=== PATIENT | female | born 1950 | race Caucasian/White ===

== ENCOUNTER 2020-08-09 04:02 | Inpatient (IN) | payer MEDICARE, OTHER, SELFPAY ==
[2020-08-09] VITALS (36 sets, daily range): BP systolic 90–151; BP diastolic 48–98; PULSE 41–84; RESP 12–24; TEMP 36.1–36.9; O2SAT 23–100
--- NOTE | 2020-08-09 | ECHO_ITS ---
Patient Info Name: Ivanna Chakraborty Age: 70 years : 1950 Gender: Female Ht: 63 in Wt: 141 lbs BSA: 1.70 m2 HR: 61 bpm BP: 124 / 64 mmHg Heart Rhythm: Sinus Rhythm Technical Quality: Good Exam Date: 08/09/2020 3:05 PM Exam Location: [facility] Pulmonary Patient Status: Inpatient Admit Date: 08/09/2020 Staff Ordering Physician: Rex Saleh MD Collision Repairer: Rigo Vazquez, ILANA, RT Attending Provider: Michael Gleasno MD Referring Physician: Therese LANDEROS; Exam Type: CA echo doppler color flow Study Info Indications I50.9 - Heart failure, unspecified Complete two-dimensional, color flow and Doppler transthoracic echocardiogram is performed. Strain analysis performed. Summary 1. Complete two-dimensional, color flow and Doppler transthoracic echocardiogram is performed. 2. Strain analysis performed. 3. Left ventricular chamber dimension is normal. 4. Left ventricular systolic function is moderately reduced, estimated at 35-40%. 5. There is mildly increased left ventricular wall thickness. 6. The left ventricular diastolic function is normal. 7. Global longitudinal strain is abnormal at -15 %. 8. The apical septum, apical anterior wall, apical cap, and mid inferoseptal are akinetic. 9. The apical lateral wall, basal anterior wall, mid anterior wall, basal inferoseptal, mid anterolateral wall, basal anteroseptal, and mid anteroseptal are hypokinetic. 10. Left atrial chamber dimension is mildly enlarged. 11. There is mild to moderate mitral valve regurgitation. 12. There is mild tricuspid valve regurgitation. 13. There is mild pulmonic regurgitation. Left Ventricle Left ventricular chamber dimension is normal. Left ventricular systolic function is moderately reduced, estimated at 35-40%. There is mildly increased left ventricular wall thickness. The left ventricular diastolic function is normal. Global longitudinal strain is abnormal at -15 %. The apical septum, apical anterior wall, apical cap, and mid inferoseptal are akinetic. The apical lateral wall, basal anterior wall, mid anterior wall, basal inferoseptal, mid anterolateral wall, basal anteroseptal, and mid anteroseptal are hypokinetic. All other acharya appear normal. Right Ventricle Right ventricular chamber dimension is normal. Right ventricular systolic function is normal. Left Atria Left atrial chamber dimension is mildly enlarged. Right Atria Right atrial chamber dimension is normal. Atrial Septum Intact interatrial septum visualized by color flow imaging. Aortic Valve The aortic valve is trileaflet. There is mild aortic valve sclerosis. There is no aortic valve stenosis. There is trace aortic valve regurgitation. Pulmonic Valve The pulmonic valve is normal. There is no pulmonic valve stenosis. There is mild pulmonic regurgitation. Mitral Valve The mitral valve has normal leaflets. There is no mitral valve stenosis. There is mild to moderate mitral valve regurgitation. Tricuspid Valve The tricuspid valve leaflets are normal. There is no significant tricuspid valve stenosis. There is mild tricuspid valve regurgitation. No pulmonary hypertension, estimated pulmonary arterial systolic pressure is 34 mmHg. Pericardium/Pleural The pericardium appears normal. There is no pericardial effusion. Inferior Vena Cava Normal inferior vena cava with <50% collapse upon inspiration consistent with normal right atrial pressure, 5 mmHg. Ao
--- NOTE | ~2020-08-09 | XR_ITS ---
EXAMINATION: XR chest 1V portable INDICATION: STEMI, tobacco use TECHNIQUE: Portable AP chest at 0423 hours COMPARISON: 01/26/2006 FINDINGS: The lungs are free of acute opacities. There is no pleural effusion or pneumothorax. The ca rdiomediastinal silhouette is normal. There is mild elevation of the right hemidiaphragm. IMPRESSION: 1. No acute cardiopulmonary abnormality. Reviewed, dictated and finalized at location A. PROCESSOR
--- NOTE | 2020-08-09 04:08 | ECG_ITS ---
Measurements Intervals [place] Rate: 43 P: 18 MS: 140 QRS: 62 QRSD: 103 T: -50 QT: 492 QTc: 418 Interpretive Statements SINUS BRADYCARDIA EXTENSIVE ANTERIOR ST ELEVATION MYOCARDIAL INJURY- ACUTE HIGH LATERAL ST ELEVATION MYOCARDIAL INJURY- ACUTE BASELINE ARTIFACT- AVR, AVL, AVF ABNORMAL ECG Electronically Signed On 08-09-2020 7:12:32 CAPITAL EQUIPMENT SPECIALIST by Juan Roldan D.O.
--- NOTE | 2020-08-09 04:15 | PC.NURSE ---
pt @0411, given heparin 4000 mcg, atropine 0.5 mg, zofran 4 mg. them @ fentanyl 50 mcg ivp.
--- NOTE | 2020-08-09 04:16 | ED.GENADULT ---
HPI - General Adult General Chief complaint: Chest Pain Stated complaint: stemi Time Seen by Provider: 08/09/20 04:16 History of Present Illness HPI narrative: Patient 70-year-old female who presents the emergency department with chief complaint of chest pain. The patient reports that this afternoon she started having discomfort in her chest and reported that it got progressively worse the patient initially thought it was indigestion the patient ultimately called EMS this evening was having some nausea with it as well patient reports that does not radiate reports that its not improved reports the pain is severe. The patient reports no prior history of ND just history of hypothyroidism Related Data Home Medications Medication Instructions Recorded Confirmed levothyroxine [Synthroid] 125 mcg PO DAILY 08/09/20 08/09/20 Review of Systems Review of Systems: Narrative: A 10 system review of systems was completed on the patient and is negative except for what is stated in the HPI. Nursing and ancillary documentation was reviewed. PMFSH Comments Past medical history significant for hypothyroidism Social history the patient reports that she smokes Exam Narrative: Exam Narrative: GENERAL: Well-appearing, well-nourished, and in moderate pain distress. HEAD: Normocephalic, atraumatic. EYES: PERRLA and EOMI. ENT: Nares clear, no rhinorrhea or epistaxis. Mucous membranes moist. NECK: Supple. CHEST: Clear to auscultation. No respiratory distress. HEART: Regular rate and rhythm. No murmur heard. Normal peripheral pulses. ABDOMEN: Soft, nontender, nondistended, normal active bowel sounds. EXTREMITIES: Normal range of motion. No edema. SKIN: Warm, dry, no rash. NEURO: No focal deficits. Alert and oriented x3. PSYCH: Normal mood and affect. Course Course Emergency Course: EKG shows sinus bradycardia with a rate of 43 ST elevations present in V2 V3 and V4 there is reciprocal ST depressions present in 2 3 and aVF The patient was activated as an ST elevation ND upon arrival the patient was profoundly bradycardic with a rate going in the 30s to low 40s patient was given half a milligram of atropine that has improved the patient's heart rate and also include the patient's blood pressure she was given a bolus of heparin she received aspirin prior to arrival by EMS beta-blockers were held due to the patient's bradycardia The case was discussed with the on-call interventionalist Dr. Gleason and the plan will be to take the patient to the cardiac catheterization lab Vital Signs Vital signs: Vital Signs Temperature 36.1 C L 08/09/20 04:02 Pulse Rate 41 L 08/09/20 04:02 Respiratory Rate 12 08/09/20 04:02 Blood Pressure 90/53 L 08/09/20 04:02 Pulse Oximetry 100 08/09/20 04:02 Temperature 36.1 C L 08/09/20 04:02 Pulse Rate 81 08/09/20 04:14 Respiratory Rate 18 08/09/20 04:14 Blood Pressure 109/72 08/09/20 04:14 Pulse Oximetry 100 08/09/20 04:14 Medical Decision Making Vital Signs Vital Signs: Vital Signs Temperature 36.1 C L 08/09/20 04:02 Pulse Rate 41 L 08/09/20 04:02 Respiratory Rate 12 08/09/20 04:02 Blood Pressure 90/53 L 08/09/20 04:02 Pulse Oximetry 100 08/09/20 04:02 Temperature 36.1 C L 08/09/20 04:02 Pulse Rate 81 08/09/20 04:14 Respiratory Rate 18 08/09/20 04:14 Blood Pressure 109/72 08/09/20 04:14 Pulse Oximetry 100 08/09/20 04:14 Critical Care Time Critical Care Time Critical Care Time: Yes Total Critical Care Time: 30 Discharge Plan Discharge Clinical Impression: Acute ST elevation myocardial infarction Qualifiers: Involved coronary artery: other anterior wall coronary artery Qualified Code(s): I21.09 - ST elevation (STEMI) myocardial infarction involving other coronary artery of anterior wall Patient Disposition: Still a Patient Condition: Stable Prescriptions: No Action levothyroxine [Synthroid] 125 mcg Tablet 125 mcg
[2020-08-09] MEDS: fentaNYL CITRATE INJ (*CRX) 100 MCG/2 ML VIAL (04:20)
--- NOTE | 2020-08-09 04:21 | PC.NURSE ---
ems gave mg
--- NOTE | 2020-08-09 04:23 | PC.NURSE ---
ns x 2 wo iv
--- NOTE | 2020-08-09 04:26 | PC.NURSE ---
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
[2020-08-09 04:29] LABS: Basophils Absolute Auto 0.2 K/mm3 (0.0-0.1); Basophils Percent Auto 1.7 % (0.2-1.2); Eosinophils Absolute Auto 1.1 K/mm3 (0-0.3); Eosinophils Percent Auto 12.6 % (0-4.4); Hematocrit 39.2 % (37.0-47.0); Immature Granulocyte Absolute 0.01 K/mm3 (0.00-0.031); Immature Granulocyte Percent A 0.1 % (0-0.5); Lymphocytes Absolute Auto 3.95 K/mm3 (0.9-3.2); Lymphocytes Percent Auto 43.8 % (18.3-44.2); Mean Corpuscular HGB Conc 33.2 g/dl (32-36); Mean Corpuscular Hemoglobin 29.8 pg (26-34); Mean Corpuscular Volume 89.9 fl (80-100); Mean Platelet Volume 10.1 fl (7.4-10.4); Monocytes Percent Auto 11.4 % (2.6-8.5); Neutrophils Absolute Auto 2.7 K/mm3 (1.3-6.7); Neutrophils Percent Auto 30.4 % (45.5-73.1); Platelet Count Result 285 k/mm3 (150-375); Red Blood Count 4.36 M/mm3 (4.2-5.4); Red Cell Distribution Width 12.3 % (11.5-14.5)
[2020-08-09] MEDS: TICAGRELOR 90 MG TABLET 180 MG PO (04:40)
[2020-08-09 04:42] LABS: Alanine Aminotransferase 20 U/L (4-35); Albumin Level 3.9 g/dL (3.5-5.1); Alkaline Phosphatase 65 U/L (38-126); Anion Gap 5 mmol/L (8-16); Aspartate Amino Transferase 32 U/L (14-36); Bilirubin,Total 0.4 mg/dL (0.2-1.3); Blood Urea Nitrogen 11 mg/dL (7-17); Calcium 8.8 mg/dL (8.4-10.2); Carbon Dioxide 27 mmol/L (22-30); Chloride 105 mmol/L (98-107); Cholesterol 200 mg/dL (0-200); Estimated CRCL calculation 65 ml/min; Estimated Glomerular Filt Rate > 60; Glucose 146 mg/dL (65-105); HDL Direct 74 mg/dL; Potassium 3.5 mmol/L (3.4-5.0); Sodium 137 mmol/L (137-145); Triglycerides 107 mg/dL (<150)
[2020-08-09 04:43] LABS: Prothrombin Time 13.6 Seconds (11.1-14.7)
[2020-08-09 04:44] LABS: Partial Thromboplastin Time 24.9 SECONDS (22.3-36.8)
[2020-08-09 04:53] LABS: LDL Cholesterol Direct 98 mg/dL
--- NOTE | 2020-08-09 05:02 | PC.NURSE ---
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
[2020-08-09 05:05] LABS: Troponin I 0.309 ng/mL (0.000-0.034)
--- NOTE | 2020-08-09 05:49 | ECG_ITS ---
Measurements Intervals [place] Rate: 75 P: 75 AL: 169 QRS: 73 QRSD: 93 T: 104 QT: 440 QTc: 492 Interpretive Statements SINUS RHYTHM ATRIAL PREMATURE COMPLEX ANTEROSEPTAL MYOCARDIAL INFARCT- PROBABLY RECENT ABNORMAL ECG Electronically Signed On 08-09-2020 7:28:10 SALES HUNTER by Juan Roldan D.O.
--- NOTE | 2020-08-09 05:54 | WPDCARDPROC ---
Cardiac Cath Procedure Note Date of procedure:: 08/09/20 Performing physician:: Michael Gleason MD Indication:: acute anterior NH Brief clinical history:: this is a 70-year-old woman without previous cardiac history. She has a history of prior thyroidectomy with thyroid replacement therapy but no other medical problems. She presents to the hospital this morning with chest pain and ECG evidence of acute anterior current of injury. the patient presented in the middle of the night and was kept in the emergency room until I arrived because apparently there were some [place] arrhythmias requiring atropine. Start of her procedure was delayed somewhat because of this. Procedure Procedure performed:: Emergency coronary angiogram emergency PCI to proximal LAD left ventriculography Sedation/Medication given:: no additional sedation given in the cath lab nurse case start time 5:21 a.m. case end time 5:46 a.m. Access site:: right femoral artery Estimated blood loss:: 15-20 cc Procedure note:: patient was brought to the catheterization lab in the emergency setting. The right femoral triangle was prepared and draped in the usual fashion. Anesthesia was provided with 1% lidocaine infiltrated locally. Using the modified Seldinger technique a 6 Marshallese sheath was placed into right femoral artery after this I used a 6 Marshallese CLS 3.5 guiding catheter to engage and inject the left coronary artery in multiple projections. After this PCI of the proximal LAD was recommended and carried out as detailed below. Prior to PCI the patient was systemically anticoagulated with bolus and infusion of Angiomax. She did receive aspirin and a loading dose of 180 mg of Brilinta in the emergency department. Following completion of PCI a 5 Marshallese JR4 catheter was used to engage and inject the right coronary artery in orthogonal projections. After this a 5 Marshallese angled pigtail catheter was used to measure left-sided hemodynamics and to injected left ventriculogram in the MARTEL projection. Following this the case was terminated the sheath was sutured into position patient was taken to the ICU for post NH/PCI recovery. There were no apparent procedural complication she left the cath lab nurse with no evidence of a groin hematoma. Findings:: Hemodynamics: Central aortic pressure is 140 over 72 left ventricle 138/12 end-diastolic pressure 24. There is no gradient on pullback across the aortic valve. Left ventricle: The LV is normal in size the anterior wall is markedly hypodynamic. The global ejection fraction is reduced to approximately 40%. Left main coronary artery is patent but extremely short and bifurcates almost immediately into LAD and circumflex the left anterior descending is a somewhat small vessel in caliber. There is a 99% subtotal occlusion of the proximal LAD prior to any branches. There is PRISCILLA 2 flow in the LAD distal to this subtotal occlusion. Circumflex is a large caliber artery giving rise to the marginal branches as well as 2 posterior branches. Circumflex system and its branches are smooth and angiographically free of disease. Right coronary artery is small to medium in caliber it is dominant to the posterior wall giving rise to an RPDA and a small RPL branch. The right coronary artery is smooth and angiographically unremarkable. Intervention: The CLS 3.5 guiding catheter was used and had to be withdrawn almost out of the left main to cannulate the LAD with a 0.014 BMW coronary guidewire. The guidewire was eventually successfully advanced into the LAD. the guidewire was advanced into a large diagonal branch that was was noted in the MONGOLIAN cranial projection. The LAD itself was distal to the area of disease. Since there was difficulty cannulating the LAD this was accepted as a satisfactory position for the wire since the lesion was very proximal. After this the lesion was pre-dilated using a 2.5 x 20 mm emerge balloon after which the ar
--- NOTE | 2020-08-09 06:04 | PM.IMHP ---
H&P: HPI History of Present Illness Date/Time: 08/09/20 06:04 Chief Complaint: Chest pain Narrative: this is a 70-year-old patient who has no previous history of heart disease who apparently began to experience significant chest pain in the middle of the night. She was brought to the emergency room by EMS her ECG was found to show acute evidence of anterior wall myocardial infarction and STEMI protocol was activated. Patient reports the onset of retrosternal heaviness with some diaphoresis no significant shortness of breath or radiation of the pain to any other location. She states she has never had a cardiac problem in the past. She reports a history of thyroidectomy in childhood after which she has been on thyroid replacement therapy. She denies any knowledge of hypertension diabetes or dyslipidemia. Review of Systems Review of Systems: Narrative: No time to obtain review of systems during this emergency ROS unobtainable: Yes unobtainable due to medical condition Meds Home Medications and Allergies Home Medications Medication Instructions Recorded Confirmed Type levothyroxine [Synthroid] 125 mcg PO DAILY 08/09/20 08/09/20 History Allergies Allergy/AdvReac Type Severity Reaction Status Date / Time amoxicillin Allergy Rash Verified 08/09/20 04:31 Vital Signs Vital Signs - 24 hr 08/09/20 04:02 08/09/20 04:08 08/09/20 04:14 Temperature 36.1 C L Pulse Rate 41 L 81 81 Respiratory Rate 12 15 18 Blood Pressure 90/53 L 96/79 L 109/72 Pulse Oximetry 100 100 100 08/09/20 04:28 08/09/20 04:46 08/09/20 05:01 Temperature Pulse Rate 84 82 81 Respiratory Rate 16 24 H 18 Blood Pressure 138/48 L 142/80 H 151/86 H Pulse Oximetry 100 100 100 Exam Const: General: uncomfortable Other: 70-year-old lady appears to be healthy in moderate distress with 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 HENMT: Mouth: Yes moist mucous membranes Eyes: Sclera: sclerae normal Pupils: Equal, round and reactive pupils present Neck: Neck: supple and no JVD Other: carotid pulses are intact no bruit Resp: Effort & Inspection: normal respiratory effort Auscultation: clear to auscultation bilaterally Cardio: Rate: regular rate and tachycardic Rhythm: regular rhythm Other: no murmur no gallop GI: GI Palp: Yes Soft to palpation Auscultation: normal bowel sounds Skin: General skin exam: normal color Neuro: Cognition (Neuro): normal cognition Extrem: General: normal to inspection H&P: Results Labs Labs: Short CBC 08/09/20 Range/Units 04:12 WBC 9.0 (4.5-10.0) K/mm3 Hgb 13.0 (12.0-15.0) g/dL Hct 39.2 (37.0-47.0) % Plt Count 285 (150-375) k/mm3 BMP 08/09/20 04:12 Sodium 137 Potassium 3.5 Chloride 105 Carbon Dioxide 27 BUN 11 Creatinine 0.60 L Glucose 146 H Calcium 8.8 Cardiac Enzymes 08/09/20 Range/Units 04:12 Troponin I 0.309 H* (0.000-0.034) ng/mL Liver Function 08/09/20 Range/Units 04:12 Total Bilirubin 0.4 (0.2-1.3) mg/dL AST 32 (14-36) U/L ALT 20 (4-35) U/L Alkaline Phosphatase 65 (38-126) U/L Albumin 3.9 (3.5-5.1) g/dL Assessment and Plan Additional Plan this is a 70-year-old lady with a history of childhood thyroidectomy and no other medical problems presenting with chest pain in the middle of the night and has acute anterior wall current of injury by ECG. She is being brought to the cardiac catheterization lab for emergency angiography and revascularization. The patient was kept in the emergency department because of instability of her cardiac rhythm and for that reason the start of this angiogram was delayed somewhat following my arrival. Michael Gleason MD [facility]
--- NOTE | 2020-08-09 06:33 | PC.NURSE ---
This patient, Ivanna Chakraborty, was admitted to Intensive Care Unit-2. Patient/family oriented to hospital policies and general routines including ID bracelet, bed and alarms, visiting hours, pain management, procedures, bathroom and other care routines, personal items, smoking policy, room service/diet, and visiting hours. Information on how to activate the Rapid Response Team has been discussed. Patient/Family are encouraged to report perceived risks to care and to ask questions if they do not understand what they are told or what they should do.
[2020-08-09] MEDS: SODIUM CHLORIDE 0.9% IV 1,000 ML 125 ML IV CONT (07:00)
[2020-08-09] MEDS: LOSARTAN POTASSIUM 25 MG TABLET PO (08:29)
[2020-08-09] MEDS: ROSUVASTATIN 10 MG TABLET 20 MG PO (08:29)
[2020-08-09] MEDS: ASPIRIN 81 MG CHEWABLE TABLET PO (08:29)
--- NOTE | 2020-08-09 08:40 | WPDCNINT ---
Assessment and Plan Assessment and plan (1) Acute ST elevation myocardial infarction: Qualifiers: Involved coronary artery: other anterior wall coronary artery Qualified Code(s): I21.09 - ST elevation (STEMI) myocardial infarction involving other coronary artery of anterior wall Code(s): I21.3 - ST elevation (STEMI) myocardial infarction of unspecified site Status: Acute Assessment and Plan: Patient presented the ED with substernal chest pain along with diaphoresis and shortness of breath. Pain did not radiate. In the ED patient EKG was found to show an acute anterior wall myocardial infarction, STEMI team was alerted, patient status post cardiac catheterization, PTCA/PCI to proximal LAD, EF of 40%. - continue Brilinta, Cozaar, Crestor, ASA, Metoprolol cardiology following closely (2) Hypothyroidism: Code(s): E03.9 - Hypothyroidism, unspecified Status: Acute Assessment and Plan: Will continue levothyroxine Additional Plan Discussed with patient and updated her with her condition and plan of care. Code status: Full Code critical care time spent: 41 minutes This dictation may have been done utilizing a voice recognition system. Attempts have been made to correct errors. However, there may be uncorrected grammatical, spelling, and recognition errors present. Due to a high probability of clinically significant, life threatening deterioration, the patient required my highest level of preparedness to intervene emergently and I personally spent this critical care time directly and personally managing the patient. This critical care time included obtaining a history; examining the patient; pulse oximetry; ordering and review of studies; arranging urgent treatment with development of a management plan; evaluation of patient's response to treatment; frequent reassessment; and discussions with other providers. It was exclusive of separately billable procedures and treating other patients and teaching time. 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 Patient denies any cardiac history. In the ED patient EKG was found to show an acute anterior wall myocardial infarction, STEMI team was alerted, patient status post cardiac catheterization, PTCA/PCI to proximal LAD, EF of 40%. Patient was transferred to the ICU for further management Patient seen and examined the ICU, is awake, alert, oriented, nonfocal. Patient states she has got some mild epigastric to substernal discomfort 1/10 intensity which she thinks is related to heartburn as she has had this problems in the past. Patient denies any shortness of breath, diaphoresis, nausea, vomiting. Patient denies any tobacco use, alcohol use or illicit drug use. Review of Systems Review of Systems: All systems reviewed & are unremarkable except as noted in HPI and below PMFSH Past Medical History Medical History (Updated 08/09/20 @ 08:45 by Rex Saleh MD) Hypothyroidism Social History Social History Smoking packs per day: 4 Smoking cigarettes per day: 80.0 Smoking status: Former smoker Tobacco type: cigarettes Second hand tobacco smoke exposure: No Alcohol intake: never Substance use: never Spiritual care concerns: No Meds Home Medications and Allergies Home Medications Medication Instructions Recorded Confirmed Type levothyroxine [Synthroid] 125 mcg PO DIRECTED 08/09/20 08/09/20 History Allergies Allergy/AdvReac Type Severity Reaction Status Date / Time amoxicillin Aller
[2020-08-09] MEDS: METOPROLOL SUCCINATE EXT REL 50 MG TABCR PO (09:51)
[2020-08-09] MEDS: FAMOTIDINE 20 MG/2 ML VIAL IV PUSH ×2 (09:52→19:51)
[2020-08-09] MEDS: LEVOTHYROXINE SODIUM 100 MCG TABLET PO (09:52)
--- NOTE | 2020-08-09 13:17 | ECG_ITS ---
Measurements Intervals [place] Rate: 57 P: 51 [place]: 160 QRS: 74 QRSD: 93 T: 107 QT: 517 QTc: 507 Interpretive Statements SINUS BRADYCARDIA ANTEROSEPTAL MYOCARDIAL INFARCT- PROBABLY RECENT ABNORMAL ECG Electronically Signed On 08-09-2020 13:40:28 BASKET FILLER by Juan Roldan D.O.
[2020-08-09] MEDS: CALCIUM CARBONATE (TUMS) 500 MG (200 MG ELEMENTAL) PO (13:35)
[2020-08-09] MEDS: ONDANSETRON INJ 4 MG/2 ML VIAL IV PUSH (17:17)
[2020-08-09] MEDS: ALPRAZolam (*CRX) 0.5 MG TABLET PO (19:51)
[2020-08-09] MEDS: TICAGRELOR 90 MG TABLET PO (19:52)
[2020-08-09] MEDS: MAGNESIUM HYDROXIDE SUSP 30 ML UDC PO (19:54)
[2020-08-10] VITALS (20 sets, daily range): BP systolic 100–129; BP diastolic 54–72; PULSE 57–92; RESP 16–22; TEMP 36.6–36.8; O2SAT 92–97
--- NOTE | 2020-08-10 05:11 | ECG_ITS ---
Measurements Intervals [place] Rate: 63 P: 52 LA: 154 QRS: 51 QRSD: 96 T: 120 QT: 485 QTc: 500 Interpretive Statements SINUS RHYTHM ATRIAL PREMATURE COMPLEX ANTEROSEPTAL MYOCARDIAL INFARCT- PROBABLY RECENT HIGH LATERAL MYOCARDIAL INFARCT- PROBABLY RECENT ABNORMAL ECG Electronically Signed On 08-10-2020 11:58:16 ENFORCEMENT MANAGER by Juan Roldan D.O.
[2020-08-10 05:37] LABS: Basophils Absolute Auto 0.1 K/mm3 (0.0-0.1); Basophils Percent Auto 0.7 % (0.2-1.2); Eosinophils Absolute Auto 0.5 K/mm3 (0-0.3); Eosinophils Percent Auto 6.4 % (0-4.4); Hematocrit 39.3 % (37.0-47.0); Hemoglobin 13.3 g/dL (12.0-15.0); Immature Granulocyte Absolute 0.02 K/mm3 (0.00-0.031); Immature Granulocyte Percent A 0.2 % (0-0.5); Lymphocytes Absolute Auto 1.22 K/mm3 (0.9-3.2); Lymphocytes Percent Auto 14.4 % (18.3-44.2); Mean Corpuscular HGB Conc 33.8 g/dl (32-36); Mean Corpuscular Hemoglobin 30.4 pg (26-34); Mean Corpuscular Volume 89.7 fl (80-100); Mean Platelet Volume 10.3 fl (7.4-10.4); Monocytes Absolute Auto 0.9 K/mm3 (0.1-0.6); Neutrophils Absolute Auto 5.8 K/mm3 (1.3-6.7); Neutrophils Percent Auto 68.3 % (45.5-73.1); Platelet Count Result 201 k/mm3 (150-375); Red Blood Count 4.38 M/mm3 (4.2-5.4); Red Cell Distribution Width 12.4 % (11.5-14.5); White Blood Count 8.5 K/mm3 (4.5-10.0)
[2020-08-10 05:51] LABS: Anion Gap 2 mmol/L (8-16); Blood Urea Nitrogen 5 mg/dL (7-17); Calcium 7.9 mg/dL (8.4-10.2); Carbon Dioxide 28 mmol/L (22-30); Chloride 98 mmol/L (98-107); Cholesterol 161 mg/dL (0-200); Estimated CRCL calculation 73 ml/min; Estimated Glomerular Filt Rate > 60; Glucose 137 mg/dL (65-105); HDL Direct 57 mg/dL; Magnesium 1.7 mg/dL (1.6-2.3); Phosphorus 3.1 mg/dL (2.5-4.5); Potassium 4.2 mmol/L (3.4-5.0); Sodium 128 mmol/L (137-145); Triglycerides 78 mg/dL (<150)
[2020-08-10 06:01] LABS: LDL Cholesterol Direct 77 mg/dL
[2020-08-10] MEDS: LEVOTHYROXINE SODIUM 125 MCG TABLET PO (06:28)
--- NOTE | 2020-08-10 08:30 | WPDINTPN ---
Progress Note: A&P Assessment and Plan (1) Acute ST elevation myocardial infarction: Qualifiers: Involved coronary artery: other anterior wall coronary artery Qualified Code(s): I21.09 - ST elevation (STEMI) myocardial infarction involving other coronary artery of anterior wall Code(s): I21.3 - ST elevation (STEMI) myocardial infarction of unspecified site Status: Acute Assessment and Plan: Patient presented the ED with substernal chest pain along with diaphoresis and shortness of breath. In the ED patient EKG was found to show an acute anterior wall myocardial infarction, STEMI team was alerted, patient status post cardiac catheterization, PTCA/PCI to proximal LAD, EF of 40%. - Continue Brilinta, Cozaar, Crestor, ASA, Metoprolol. Blood pressure within acceptable range. cardiology following closely (2) Hypothyroidism: Code(s): E03.9 - Hypothyroidism, unspecified Status: Acute Assessment and Plan: Will continue levothyroxine (3) GERD (gastroesophageal reflux disease): Code(s): K21.9 - Gastro-esophageal reflux disease without esophagitis Status: Acute Assessment and Plan: Can add Prilosec if symptoms continued. Can use Maalox/Mylanta on p.r.n. basis for her symptoms. Additional Plan Discussed with patient and updated her with her condition and plan of care. Code status: Full Code Patient can be transferred to telemetry floor today. This dictation may have been done utilizing a voice recognition system. Attempts have been made to correct errors. However, there may be uncorrected grammatical, spelling, and recognition errors present. Subjective Date/time seen: 08/10/20 08:30 She is feeling better. She denied have any chest pain. She is complaining of some indigestion and was given some p.r.n. medicine last night with improvement in her symptoms. She denied have any shortness of breath dizziness and lightheadedness. She has been ambulating in the room going to restroom without any issues. Her hemodynamics are stable. Review of Systems Review of Systems: All systems reviewed & are unremarkable except as noted in HPI and below Exam Const: General: comfortable and no acute distress HENMT: Mouth: Yes moist mucous membranes Eyes: Sclera: sclerae normal Pupils: Equal, round and reactive pupils present Neck: Neck: supple Resp: Effort & Inspection: normal respiratory effort Auscultation: clear to auscultation bilaterally Cardio: Rate: regular rate Rhythm: regular rhythm GI: Inspection: non-distended Auscultation: normal bowel sounds : Other: Deferred Skin: General skin exam: normal color and no rashes or lesions noted Neuro: Cranial nerves: Yes Equal, round and reactive pupils present Other: Patient is awake, alert, oriented x3, nonfocal, answers to questions appropriately and follows simple commands in all extremities Extrem: General: normal to inspection, no edema and no pedal edema Other: Right groin site no evidence of ecchymosis or hematoma Psych: Mental Status: mental status grossly normal Affect: normal affect Objective Data Vital Signs Vital Signs: Vital Signs - 24 hr 08/09/20 08:32 08/09/20 09:17 08/09/20 09:25 Temperature Pulse Rate 63 66 Pulse Rate [Bilateral Pedal (Dorsalis Pedis) Palpation] 82 66 Respiratory Rate 22 H 22 H Blood Pressure 120/73 136/74 Pulse Oximetry 92 100 08/09/20 09:45 08/09/20 09:51 08/09/20 09:55 Temperature Pulse Rate 69 68 62 Pulse Rate [Bilateral Pedal (Dorsalis Pedis) Palpation] Respiratory Rate 15 22 H 18 Blood Pressure 134/90 125/66 134/90 Pulse Oximetry 91 100 93 08/09/20 10:00 08/09/20 10:30 08/09/20 11:00 Temperature Pulse Rate 66 64 64 Pulse Rate [Bilateral Pedal (Dorsalis Pedis) Palpation] 66 64 64 Respiratory Rate 17 15 15 Blood Pressure 126/70 126/70 126/75 Pulse Oximetry 92 92 93 08/09/20 11:52 08/09/20 12:00 08/09/20 13:00
[2020-08-10] MEDS: ASPIRIN 81 MG CHEWABLE TABLET PO (08:38)
[2020-08-10] MEDS: METOPROLOL SUCCINATE EXT REL 50 MG TABCR PO (08:38)
[2020-08-10] MEDS: ROSUVASTATIN 10 MG TABLET 20 MG PO (08:39)
[2020-08-10] MEDS: LOSARTAN POTASSIUM 25 MG TABLET PO (08:39)
[2020-08-10] MEDS: TICAGRELOR 90 MG TABLET PO ×2 (08:40→19:42)
--- NOTE | 2020-08-10 12:15 | PM.PNCARD ---
Progress Note: A&P Assessment and Plan (1) Acute ST elevation myocardial infarction: Qualifiers: Involved coronary artery: other anterior wall coronary artery Qualified Code(s): I21.09 - ST elevation (STEMI) myocardial infarction involving other coronary artery of anterior wall Code(s): I21.3 - ST elevation (STEMI) myocardial infarction of unspecified site Status: Acute Assessment and Plan: 99% proximal LAD occlusion status post successful 3.0 x 22 mm Orsiro drug-eluting stent. akinetic anterior wall, EF 40%. Continue dual antiplatelet therapy with aspirin and Brilinta, losartan, rosuvastatin, Toprol XL. Currently asymptomatic and doing well. Counseled extensively on the importance of medications, potential complication risk, arrhythmias, heart failure, recurrent symptoms and risk with noncompliance of subsequent stent thrombosis and/or myocardial infarction that may potentially lead to . Discussed outpatient follow-up, cardiac rehabilitation referral, post catheterization precautions and recommendations. All questions answered to their satisfaction. Patient's daughter at bedside. May transfer to [address] [place] [address] today. Patient must remain hospitalized for least 48 hours. Earliest discharge consideration tomorrow provided no issues overnight tolerating medications without difficulty. Patient verbalized understanding and agreed with plan of care. (2) Ischemic cardiomyopathy: Code(s): I25.5 - Ischemic cardiomyopathy Status: Acute Assessment and Plan: Compensated, EF 40%. Residual ST elevations on EKG this a.m. in anterior leads. (3) Hypothyroidism: Code(s): E03.9 - Hypothyroidism, unspecified Status: Acute Assessment and Plan: Continue levothyroxine. (4) Palpitations: Code(s): R00.2 - Palpitations Status: Acute Assessment and Plan: Seems to correlate with intermittent PVCs. No nonsustained VT or sustained VT on telemetry. (5) GERD (gastroesophageal reflux disease): Code(s): K21.9 - Gastro-esophageal reflux disease without esophagitis Status: Acute Assessment and Plan: Change to p.o. Pepcid 20 mg b.i.d.. Subjective Date/time seen: date of service: 08/10/20 10:15 Follow-up for anterior ST-elevation [place] status post PCI to LAD. New issues overnight. Patient noted some burning upper abdominal lower chest discomfort resolved with milk of magnesia and Zofran. Feels well today. No complaints. No significant ventricular arrhythmias on telemetry. Denies shortness of breath or chest pain. Blood pressure stable. Tolerating medications thus far. Review of Systems Review of Systems: All systems reviewed & are unremarkable except as noted in HPI and below Constitutional: Constitutional: Reports as per HPI and Reports no additional constitutional complaints Eyes: Eyes: Reports as per HPI and Reports no additional eye complaints ENT: Reports system reviewed and no additional complaints, except as documented and Reports as per HPI Cardiovascular: Cardiovascular: Reports as per HPI and Reports no additional cardiovascular complaints Respiratory: Respiratory: Reports as per HPI, Reports no additional respiratory complaints, Denies dyspnea and Denies dyspnea on exertion Gastrointestinal: Gastrointestinal: Reports as per HPI, Reports no additional gastrointestinal complaints, Reports heartburn, Reports nausea and Denies vomiting Genitourinary: Genitourinary: Reports no additional female genitourinary complaints and Reports as per HPI Musculoskeletal: Musculoskeletal: Reports no additional musculoskeletal complaints and Reports as per HPI Integumentary/Breasts: Skin/Breast: Reports system reviewed and no additional complaints, except as docu and Reports as per HPI Neurologic: Reports system reviewed and no additional complaints, except as documented and Reports as per HPI Psychiatric: Psychiatric: Reports no additi
[2020-08-10] MEDS: MAGNESIUM SULF 1 GM/D5W 100 ML 1 GM/100 ML BAG IVPB (13:29)
[2020-08-10] MEDS: AMIODARONE 150 MG/D5W 100 ML 150 MG/100 ML BAG 600 MG IV CONT (14:44)
[2020-08-10] MEDS: AMIODARONE HCL 200 MG TABLET 400 MG PO (16:08)
[2020-08-10] MEDS: AMIODARONE 360 MG/D5W 200 ML 360 MG/200 ML BAG 33.33 MG IV CONT (17:17)
--- NOTE | 2020-08-10 19:15 | PC.NURSE ---
notified of patient's runs of VTACH that began at 1240 on 08/10/2020. New orders for 1gm Magnesium IV received. Will continue to monitor.
--- NOTE | 2020-08-10 19:16 | PC.NURSE ---
Patient had a 26 second run of VTACH at 1412. notified of cardiac event. New orders for one time dose of 150mg bolus of Amiodarone, followed by 400mg PO Amiodarone TID. Will continue to monitor.
--- NOTE | 2020-08-10 19:18 | PC.NURSE ---
Administered PO Amiodarone at 1608. No change in frequency of VTACH runs in patient by 1710. Notified of patient's continued VTACH runs. New orders received to initiate patient on Amiodarone gtt at 1mg/hr (33.33m/hr). Will continue to monitor.
[2020-08-10] MEDS: AMIODARONE 360 MG/D5W 200 ML 360 MG/200 ML BAG 16.67 MG IV CONT (23:17)
[2020-08-11] VITALS (21 sets, daily range): BP systolic 100–113; BP diastolic 43–80; PULSE 52–118; RESP 14–20; TEMP 36.2–37.4; O2SAT 94–100
--- NOTE | 2020-08-11 03:15 | PC.NURSE ---
Daylight Savings Time For Daylight Savings Time Ending in the Fall - Clocks are moved back. For Daylight Savings Time Beginning in the Spring - Clocks are moved ahead. For [facility], the time of change occurs at 0200 hrs. Time is taken from the toll service observer. This entry on the patient's chart recognizes the change in time reflected during documentation. Example: 2 entries for vital signs may be charted for 0200 hrs.
[2020-08-11] MEDS: LEVOTHYROXINE SODIUM 100 MCG TABLET PO (05:24)
[2020-08-11] MEDS: ASPIRIN 81 MG CHEWABLE TABLET PO (08:50)
[2020-08-11] MEDS: FAMOTIDINE 20 MG TABLET PO ×2 (08:50→20:41)
[2020-08-11] MEDS: ROSUVASTATIN 10 MG TABLET 20 MG PO (08:50)
[2020-08-11] MEDS: METOPROLOL SUCCINATE EXT REL 50 MG TABCR PO (08:50)
[2020-08-11] MEDS: TICAGRELOR 90 MG TABLET PO ×2 (08:50→20:42)
--- NOTE | 2020-08-11 09:36 | ECG_ITS ---
Measurements Intervals [place] Rate: 50 P: 8 GA: 161 QRS: 58 QRSD: 93 T: 133 QT: 555 QTc: 509 Interpretive Statements SINUS BRADYCARDIA ST-T WAVE ABNORMALITY IN ANTEROLAT/HIGH LAT LEADS- CONSIDER ISCHEMIA ABNORMAL ECG Electronically Signed On 08-11-2020 10:24:07 CDT by Juan Roldan D.O.
[2020-08-11 09:59] LABS: Hematocrit 36.3 % (37.0-47.0); Hemoglobin 12.5 g/dL (12.0-15.0); Mean Corpuscular HGB Conc 34.4 g/dl (32-36); Mean Corpuscular Hemoglobin 30.9 pg (26-34); Mean Corpuscular Volume 89.6 fl (80-100); Mean Platelet Volume 10.5 fl (7.4-10.4); Platelet Count Result 174 k/mm3 (150-375); Red Blood Count 4.05 M/mm3 (4.2-5.4); Red Cell Distribution Width 12.4 % (11.5-14.5); White Blood Count 7.3 K/mm3 (4.5-10.0)
--- NOTE | 2020-08-11 10:07 | PM.PNCARD ---
Progress Note: A&P Assessment and Plan (1) Acute ST elevation myocardial infarction: Qualifiers: Involved coronary artery: other anterior wall coronary artery Qualified Code(s): I21.09 - ST elevation (STEMI) myocardial infarction involving other coronary artery of anterior wall Code(s): I21.3 - ST elevation (STEMI) myocardial infarction of unspecified site Status: Acute Assessment and Plan: 99% proximal LAD occlusion status post successful 3.0 x 22 mm Orsiro drug-eluting stent. akinetic anterior wall, EF 40%. Continue dual antiplatelet therapy with aspirin and Brilinta, losartan, rosuvastatin, Toprol XL. Currently asymptomatic and doing well. No active or recurrent angina overnight. DVT prophylaxis. Enoxaparin 40 mg subcutaneous daily (2) NSVT (nonsustained ventricular tachycardia): Code(s): I47.2 - Ventricular tachycardia Status: Acute Assessment and Plan: We discussed at length yesterday morning reason for hospitalization to monitor for ventricular tachyarrhythmias. Unfortunately, not long after my visit with her she developed frequent, recurrent nonsustained VT runs up the approximately 20 beats. Several runs of polymorphic. Patient was symptomatic. Given the frequency this necessitated amiodarone initiation. Patient feels sedated on the amiodarone, otherwise tolerating medical therapy. Continue Toprol XL as tolerated. We discussed risks, benefits, alternatives with amiodarone although short-term use anticipated. Discussed option of discontinuation with observation now versus short-term use for approximately 1 month. -will discontinue IV amiodarone, begin 400 mg p.o. b.i.d. and observe tolerance. Discussed interaction with thyroid over time as well. -Repeat 12 lead EKG, CBC, BMP, magnesium. -if residual or progressive ST-elevation on EKG and/or refractory NSVT EKG repeat 2D echocardiogram to assess for development of LV aneurysm. No evidence or exam findings suggestive of new or worsening MR. -Pt is not stable for discharge due development of new and concerning ventricular arrhythmias. Cont telemetry and close observation -apnea link overnight. (3) Ischemic cardiomyopathy: Code(s): I25.5 - Ischemic cardiomyopathy Status: Acute Assessment and Plan: Compensated, EF 35-40%. Beta-bk, ARB as tolerated. Losartan held this morning due to relative hypotension by nursing. (4) Hypothyroidism: Code(s): E03.9 - Hypothyroidism, unspecified Status: Acute Assessment and Plan: Continue levothyroxine. (5) GERD (gastroesophageal reflux disease): Code(s): K21.9 - Gastro-esophageal reflux disease without esophagitis Status: Acute Assessment and Plan: Change to p.o. Pepcid 20 mg b.i.d.. Time Spent With Patient Time with patient: 15 - 25 minutes Subjective Date/time seen: Date of service: 08/11/20 10:07 Follow-up for anterior ST-elevation [place] drug-eluting stent to LAD, ischemic cardiomyopathy, nonsustained VT. Yesterday late morning developed frequent runs of nonsustained VT longest duration over 20 beats. She was symptomatic necessitating initiation of IV amiodarone. She feels sedated on the amiodarone but ventricular arrhythmias on out control, brief nonsustained VT early this morning. She denies chest pain, shortness of breath nausea, abdominal pain. She feels wiped out in general. Transferred to the floor canceled. Review of Systems Review of Systems: All systems reviewed & are unremarkable except as noted in HPI and below ROS unobtainable: Yes unobtainable due to medical condition Constitutional: Constitutional: Reports as per HPI, Reports no additional constitutional complaints and Reports fatigue Eyes: Eyes: Reports as per HPI and Reports no additional eye complaints ENT: Reports system reviewed and no additional complaints, except as documented and Reports as per HPI Cardiovascular: Cardiovascular: Reports as
[2020-08-11 10:10] LABS: Anion Gap 1 mmol/L (8-16); Blood Urea Nitrogen 6 mg/dL (7-17); Carbon Dioxide 30 mmol/L (22-30); Chloride 99 mmol/L (98-107); Estimated CRCL calculation 62 ml/min; Estimated Glomerular Filt Rate > 60; Glucose 110 mg/dL (65-105); Magnesium 1.9 mg/dL (1.6-2.3); Potassium 3.9 mmol/L (3.4-5.0); Sodium 130 mmol/L (137-145)
[2020-08-11] MEDS: ENOXAPARIN 40 MG/0.4 ML SYRINGE SUB-Q (11:28)
--- NOTE | 2020-08-11 14:18 | ECG_ITS ---
Measurements Intervals [place] Rate: 53 P: [place]: 0 QRS: 67 QRSD: 118 T: 136 QT: 674 QTc: 635 Interpretive Statements SINUS BRADYCARDIA CHANGES TO JUNCTIONAL RHYTHM CANNOT RULE OUT SEPTAL INFARCT, AGE INDETERMINATE ST-T WAVE ABNORMALITY IN ANTEROLAT/HIGH LAT LEADS- CONSIDER ISCHEMIA ABNORMAL ECG Electronically Signed On 08-11-2020 17:19:07 CDT by Juan Roldan D.O.
--- NOTE | 2020-08-11 16:48 | PC.NURSE ---
This patient, Ivanna Chakraborty, was transferred to [[address] ] on 08/11/20 at 1648. Personal belongings sent with patient. Report given to [ danuta rodrigez]. Appropriate documentation sent with patient.
[2020-08-11] MEDS: AMIODARONE HCL 200 MG TABLET 400 MG PO (17:13)
[2020-08-12] VITALS (11 sets, daily range): BP systolic 95–107; BP diastolic 50–53; PULSE 55–73; RESP 18–20; TEMP 36.1–37.4; O2SAT 98–99
[2020-08-12 04:41] LABS: Potassium 3.8 mmol/L (3.4-5.0)
[2020-08-12 04:44] LABS: Anion Gap 1 mmol/L (8-16); Blood Urea Nitrogen 7 mg/dL (7-17); Carbon Dioxide 32 mmol/L (22-30); Chloride 100 mmol/L (98-107); Estimated CRCL calculation 62 ml/min; Estimated Glomerular Filt Rate > 60; Glucose 164 mg/dL (65-105); Magnesium 1.9 mg/dL (1.6-2.3); Sodium 133 mmol/L (137-145)
[2020-08-12] MEDS: LEVOTHYROXINE SODIUM 125 MCG TABLET PO (06:24)
--- NOTE | 2020-08-12 07:00 | ECG_ITS ---
Measurements Intervals [place] Rate: 60 P: 20 NE: 159 QRS: 83 QRSD: 90 T: 111 QT: 536 QTc: 539 Interpretive Statements SINUS RHYTHM CANNOT RULE OUT SEPTAL INFARCT, AGE INDETERMINATE ST-T WAVE ABNORMALITY IN ANTERIOR LEADS- CONSIDER ISCHEMIA ABNORMAL ECG Electronically Signed On 08-12-2020 8:17:30 CDT by Juan Roldan D.O.
[2020-08-12] MEDS: ENOXAPARIN 40 MG/0.4 ML SYRINGE SUB-Q (08:19)
[2020-08-12] MEDS: AMIODARONE HCL 200 MG TABLET 400 MG PO (08:19)
[2020-08-12] MEDS: FAMOTIDINE 20 MG TABLET PO (08:19)
[2020-08-12] MEDS: ASPIRIN 81 MG CHEWABLE TABLET PO (08:19)
[2020-08-12] MEDS: ROSUVASTATIN 10 MG TABLET 20 MG PO (08:19)
[2020-08-12] MEDS: TICAGRELOR 90 MG TABLET PO (08:19)
[2020-08-12] MEDS: METOPROLOL SUCCINATE EXT REL 25 MG TABCR PO (13:49)
--- NOTE | 2020-08-12 13:57 | PM.DS ---
DS: Admitting Diagnosis Admitting Diagnosis Admitting Diagnosis: Acute anterior wall myocardial infarction DS: Discharge Diagnosis Discharge Diagnosis (1) Acute ST elevation myocardial infarction: Qualifiers: Involved coronary artery: other anterior wall coronary artery Qualified Code(s): I21.09 - ST elevation (STEMI) myocardial infarction involving other coronary artery of anterior wall Code(s): I21.3 - ST elevation (STEMI) myocardial infarction of unspecified site Status: Acute DS: Summary Hospital Course Reason for hospitalization: Anterior wall infarction Hospital Course: This is a 70-year-old woman with a previous history of hypothyroidism following thyroidectomy in childhood. No previous cardiac history or significant risk factors. She presented to the hospital with acute chest pain and ECG evidence of acute anterolateral injury. Catheterization demonstrated a high-grade stenosis subtotal lesion of 99% in the proximal LAD. There was PRISCILLA 1 flow in the vessel. Circumflex and right coronary arteries were not significantly disease. She underwent successful PCI of this lesion deploying a 3 x 22 mm drug-eluting stent with a good anatomical result. The LAD was a somewhat small vessel in this lady. Following the procedure she did well she had a moderate troponin rise. She was kept in the hospital a little bit longer because she was having asymptomatic ventricular arrhythmias for which she was treated with amiodarone. For the last 36 hours there have been no arrhythmias she has been ambulating and feels well. Her ARB that was ordered following her PCI was held during the rest of the hospitalization because of asymptomatic hypotension so I discontinued and from her discharge orders. She is therefore being discharged on dual anti-platelet therapy, moderate dose of metoprolol and rosuvastatin as well as her amiodarone. Follow up in my office will be scheduled in 2 weeks and the plan is to refer her to phase 2 cardiac rehab. The ultimate plan of course is to wean her off of amiodarone if she is stable at we do not believe we will be committing this lady to chronic antiarrhythmic treatment. Status at Discharge Functional status at discharge: independent ambulation Time Spent with Patient Time attestation: Total time spent providing and/or coordinating discharge services: Time spent: Less than 30 minutes Exam Const: General: comfortable and no acute distress HENMT: Mouth: Yes moist mucous membranes Eyes: Sclera: sclerae normal Pupils: Equal, round and reactive pupils present Neck: Neck: supple and no JVD Thyroid: thyroid normal Resp: Effort & Inspection: normal respiratory effort Auscultation: clear to auscultation bilaterally Cardio: Rate: regular rate Rhythm: regular rhythm Other: No murmur no gallop no rub GI: GI Palp: Yes Soft to palpation Auscultation: normal bowel sounds Skin: General skin exam: normal color Neuro: Other: Normal cognition Extrem: General: normal to inspection Psych: Other: Right groin puncture site looks fine no hematoma no bruit DS: Data Data Completed and Pending Labs on day of discharge: Labs from last 24 hours 08/12/20 04:12 Sodium 133 L Potassium 3.8 Chloride 100 Carbon Dioxide 32 H Anion Gap 1 L BUN 7 Creatinine 0.60 L Estim Creat Clear Calc 62 Estimated GFR > 60 Glucose 164 H Calcium 8.0 L Magnesium 1.9 Discharge Plan Discharge Attending physician on discharge: Michael Gleason Consulting providers: Rex Saleh Discharging Clinician: Michael Gleason Patient Disposition: Home, Self-Care Activity: as tolerated and other - see discharge instructions Diet: heart healthy Wound Care Instructions: other - see discharge instructions Discharge Instructions: Activity restrictions post PCI No lifting, pushing or pulling more than 10 pounds for 1 week. No strenuous exercise or activity (including s
== END 2020-08-12 14:29 | disposition home or self-care (01) | DRG 247 ==
LOC: ANHED 04:34 → ANHICU 04:44 → ANHIMU 08-11 16:48
PROVIDERS: Internal Medicine; Internal Medicine Cardiovascular Disease; Admitting Provider Specialist; Emergency Provider Emergency Medicine; PCP Internal Medicine; Visit Provider Specialist
PROC: 4A023N7 Measurement of Cardiac Sampling and Pressure, Left Heart, Percutaneous Approach (ICD-10-PCS; CPT 93452; principal; 2020-08-09 04:30)
PROC: 027034Z Dilation of Coronary Artery, One Artery with Drug-eluting Intraluminal Device, Percutaneous Approach (ICD-10-PCS; 2020-08-09 04:30)
DX: I21.09 ST elevation (STEMI) myocardial infarction involving other coronary artery of anterior wall (principal); I25.5 Ischemic cardiomyopathy; K21.9 Gastro-esophageal reflux disease without esophagitis; E03.9 Hypothyroidism, unspecified; I25.10 Atherosclerotic heart disease of native coronary artery without angina pectoris
CPT/HCPCS: 36415; 71045; 80048; 80053; 80061; 83735; 84100; 84484; 85025; 85027; 85610; 85730; 86850; 86900; 86901; 93005; 93306; 93458; 96374; 99291; A9270; C1725; C1769; C1874; C1887; C1894; C9606; J0282; J0461; J0583; J1644; J1650; J2405; J3010; J3475; J7030; J7040

== ENCOUNTER 2020-11-21 18:00 | Outpatient (RCR) | payer MEDICARE, OTHER, SELFPAY ==
[2020-08-30 08:58] VITALS: BP 138/60; PULSE 44; RESP 16; TEMP 35.7; O2SAT 100
--- NOTE | 2020-10-30 11:46 | PCCPR ---
Nhi RN at [facility] called to follow up about fax on pt elevated BP during weights last week. Pt plans to bring her home cuff in today to compare readings; apparently pt checks her BP at home often with exercise and is not over 160s systolic. I instructed staff to document next two sessions BPs then send a follow up fax to Nhi/Dr Gleason Wednesday. [facility] will plan to see pt in office [facility] if BPs remain elevated. Nhi also had discussion with pt on phone this morning talking through the above plan of action and that BPs that high are not ok.
== END 2020-11-21 19:30 | disposition home or self-care (01) ==
LOC: ANHCPREHAB 18:00
PROVIDERS: PCP Internal Medicine; Visit Provider Specialist
DX: Z95.5 Presence of coronary angioplasty implant and graft (principal); I21.3 ST elevation (STEMI) myocardial infarction of unspecified site
CPT/HCPCS: 93798

== ENCOUNTER 2021-09-13 13:27 | Emergency (ER) | payer MEDICARE, SELFPAY ==
--- NOTE | ~2021-09-13 | XR_ITS ---
EXAMINATION: XR chest 1V portable DATE: 09/13/2021 14:04 INDICATION: Palpitations. TECHNIQUE: A single frontal view of the chest was obtained. COMPARISON: Chest single view 08/09/2020 FINDINGS: The chest demonstrates clear lungs without pneumonia, pleural effusion, or pneumothorax. Th e heart size is normal. IMPRESSION: 1. No acute cardiopulmonary disease. Reviewed, dictated and finalized at location A.
--- NOTE | 2021-09-13 13:31 | ECG_ITS ---
Measurements Intervals [place] Rate: 117 P: [place]: 0 QRS: 60 QRSD: 81 T: 65 QT: 361 QTc: 504 Interpretive Statements ATRIAL FIBRILLATION WITH RAPID VENTRICULAR RESPONSE SEPTAL MYOCARDIAL INFARCTION , PROBABLY OLD [40+ ms Q WAVE IN V1/V2] INFEROLATERAL ST ABNORMALITY, CONSIDER ISCHEMIA ABNORMAL ECG COMPARED TO ECG 08/12/2020 08:03:53 ATRIAL FIBRILLATION NOW PRESENT Electronically Signed On 09-14-2021 11:12:35 CDT by Marco Andrade M.D.
[2021-09-13 13:36] VITALS: BP 163/69; PULSE 117; RESP 18; TEMP 36.6; O2SAT 100
--- NOTE | 2021-09-13 13:46 | ED.ARRPALP ---
HPI - Arrhythmia/Palpitations General Chief Complaint: Arrhythmia/Palpitations Stated Complaint: heart palpitation Time Seen by Provider: 09/13/21 13:40 Source: patient Mode of arrival: ambulatory Limitations: no limitations History of Present Illness HPI narrative: Patient is 71 years old white female was sitting on the computer, irritated, suddenly developed fast heartbeat similar to the past. History of intermittent palpitation usually last for few minutes. Today started and has been going for the last 1 and half hour. Currently patient still feeling palpitation, the monitor showing atrial fibrillation with RVR. While talking to the patient and explaining to her what the meaning of atrial fibrillation, converted to normal sinus rhythm at 70s Patient denies any fever, chills, nausea, vomiting, shortness of breath, chest pain. Patient lives alone, stress lately, telling me possible taking extra dose of thyroid medicine today by accident. History of hyperlipidemia, hypothyroidism, coronary stent. Patient does not smoke or drink or uses drugs. Related Data Allergies Allergy/AdvReac Type Severity Reaction Status Date / Time amoxicillin Allergy Dyspnea / Verified 09/13/21 13:44 SOB Review of Systems Review of Systems: CONSTITUTIONAL: Denies fever, chills, or sweats. EYES: Denies visual changes, redness, or discharge. ENT: Denies rhinorrhea, congestion, sore throat, or otalgia. CARDIOVASCULAR: Denies chest pain, palpitations, or edema. RESPIRATORY: Denies cough or dyspnea. GASTROINTESTINAL: Denies abdominal pain, nausea, vomiting, or diarrhea. GENITOURINARY: Denies dysuria or hematuria. SKIN: Denies rash or itching. MUSCULOSKELETAL: Denies back pain, joint pain, or myalgia. NEUROLOGIC: Denies headache, numbness, or weakness. PSYCHIATRIC: Denies anxiety or depression. [facility] Past Medical History Medical History Hypothyroidism Family History Family History Mother Brain cancer Sibling Chronic obstructive pulmonary disease Sibling Cerebrovascular accident Father CAD (coronary artery disease) of artery bypass graft Social History Social History Smoking packs per day: 4 Smoking cigarettes per day: 80.0 Smoking status: Former smoker Tobacco type: cigarettes Second hand tobacco smoke exposure: No Alcohol intake: never Substance use: never Spiritual care concerns: No Course Course Emergency Course: Patient came to the emergency room with palpitation, EKG showed A. fib with RVR at 117 bpm, converted to normal sinus rhythm without any medication then back and forth home between A. fib and normal sinus rhythm eventually converted to normal sinus rhythm for almost 1 hour prior to discharge after 1 dose of Cardizem bolus. Currently patient feeling okay, will be discharged on metoprolol 25 mg once a day. Patient was advised to contact Dr. Euceda for further evaluation [facility] are not on-call today Vital Signs Vital signs: Vital Signs Temperature 36.6 C 09/13/21 13:36 Pulse Rate 117 H 09/13/21 13:36 Respiratory Rate 18 09/13/21 13:36 Blood Pressure 163/69 H 09/13/21 13:36 Pulse Oximetry 100 09/13/21 13:36 Temperature 36.6 C 09/13/21 13:36 Pulse Rate 117 H 09/13/21 13:36 Respiratory Rate 18 09/13/21 13:36 Blood Pressure 163/69 H 09/13/21 13:36 Pulse Oximetry 100 09/13/21 13:36 MDM - Arrhythmia/Palpitations Differential Diagnosis Differential diagnosis: Likely palpitations, anxiety, artial fibrillation and supraventricular tachycardia Imaging Data Radiologist's impression: Impressions Chest X-Ray 09/13/21 14:11 IMPRESSION: 1. No acute cardiopulmonary disease. ECG Data EKG #1: Attestation: I personally reviewed and interpreted this ECG as follows: ECG completion date:
--- NOTE | 2021-09-13 13:59 | ECG_ITS ---
Measurements Intervals [place] Rate: 67 P: 48 TN: 168 QRS: 30 QRSD: 89 T: 53 QT: 408 QTc: 432 Interpretive Statements SINUS RHYTHM CANNOT RULE OUT SEPTAL INFARCTION, OLD NONSPECIFIC ST AND T-WAVE ABNORMALITY ABNORMAL ECG COMPARED TO ECG 09/13/2021 13:35:03 SINUS RHYTHM NOW PRESENT Electronically Signed On 09-14-2021 11:13:52 CDT by Marco Andrade M.D.
[2021-09-13 14:30] LABS: Basophils Absolute Auto 0.1 K/mm3 (0.0-0.1); Basophils Percent Auto 2.1 % (0.2-1.2); Eosinophils Absolute Auto 0.7 K/mm3 (0-0.3); Eosinophils Percent Auto 11.5 % (0-4.4); Hematocrit 44.5 % (37.0-47.0); Hemoglobin 14.6 g/dL (12.0-15.0); Immature Granulocyte Absolute 0.01 K/mm3 (0.00-0.031); Immature Granulocyte Percent A 0.2 % (0-0.5); Lymphocytes Absolute Auto 1.58 K/mm3 (0.9-3.2); Lymphocytes Percent Auto 25.6 % (18.3-44.2); Mean Corpuscular HGB Conc 32.8 g/dl (32-36); Mean Corpuscular Hemoglobin 30.5 pg (26-34); Mean Corpuscular Volume 93.1 fl (80-100); Mean Platelet Volume 10.8 fl (7.4-10.4); Monocytes Absolute Auto 0.5 K/mm3 (0.1-0.6); Monocytes Percent Auto 7.8 % (2.6-8.5); Neutrophils Absolute Auto 3.3 K/mm3 (1.3-6.7); Neutrophils Percent Auto 52.8 % (45.5-73.1); Platelet Count Result 220 k/mm3 (150-375); Red Blood Count 4.78 M/mm3 (4.2-5.4); White Blood Count 6.2 K/mm3 (4.5-10.0)
[2021-09-13] MEDS: dilTIAZem HCl INJ 25 MG/5 ML VIAL 10 MG IV PUSH (14:37)
[2021-09-13 14:39] LABS: Alanine Aminotransferase 30 U/L (4-35); Albumin Level 4.4 g/dL (3.5-5.1); Alkaline Phosphatase 67 U/L (38-126); Anion Gap 5 mmol/L (8-16); Aspartate Amino Transferase 42 U/L (14-36); Bilirubin,Total 1.3 mg/dL (0.2-1.3); Blood Urea Nitrogen 9 mg/dL (7-17); Calcium 8.8 mg/dL (8.4-10.2); Carbon Dioxide 30 mmol/L (22-30); Chloride 102 mmol/L (98-107); Estimated CRCL calculation 64 ml/min; Estimated Glomerular Filt Rate > 60; Glucose 108 mg/dL (65-110); Potassium 3.7 mmol/L (3.4-5.0); Sodium 137 mmol/L (137-145)
[2021-09-13 15:17] VITALS: BP 145/72; PULSE 72; RESP 16; O2SAT 98
[2021-09-13 15:56] VITALS: BP 127/72; PULSE 69; RESP 16; O2SAT 100
== END 2021-09-13 15:58 | disposition home or self-care (01) ==
PROVIDERS: Emergency Provider Emergency Medicine; PCP Internal Medicine
DX: I48.0 Paroxysmal atrial fibrillation (principal); E03.9 Hypothyroidism, unspecified; Z87.891 Personal history of nicotine dependence; Z79.82 Long term (current) use of aspirin; R94.31 Abnormal electrocardiogram [ECG] [EKG]
CPT/HCPCS: 36415; 71045; 80053; 84443; 85025; 93005; 96374; 99284

== ENCOUNTER 2023-03-08 19:25 | Emergency (ER) | payer MEDICARE, SELFPAY ==
[2023-03-08 19:39] VITALS: BP 163/63; PULSE 68; RESP 18; TEMP 37.4; O2SAT 100
[2023-03-08 19:40] VITALS: BP 163/63; PULSE 68; RESP 18; TEMP 37.4; O2SAT 100
--- NOTE | 2023-03-08 19:40 | ED.EYEPROB ---
HPI - Eye Problem General Chief complaint: Eye Problems Stated complaint: sawdust in left eye Source: patient and RN notes reviewed Mode of arrival: ambulatory Limitations: no limitations History of Present Illness HPI Narrative: 72-year-old female presents with concern for left eye pain. Reports this prior to arrival she got saw dust in her eyes, she rinsed it out of the right eye, but feels like there is something still in the left eye. chief complaint: eye pain Related Data Allergies Allergy/AdvReac Type Severity Reaction Status Date / Time amoxicillin Allergy Dyspnea / Verified 09/13/21 13:44 SOB Review of Systems Review of Systems: CONSTITUTIONAL: Denies malaise, chills, sweats, or fever. EYES: Denies visual changes. Reports pain in feeling of foreign body in the left eye ENT: Denies rhinorrhea, congestion, sinus pain, otalgia or sore throat. SKIN: Denies rash or itching. NEUROLOGIC: Denies numbness, weakness, or headache. PSYCHIATRIC: Denies anxiety or depression. All systems reviewed & are unremarkable except as noted in HPI and below PMFSH Past Medical History Medical History Hypothyroidism Family History Family History Mother Brain cancer Sibling Chronic obstructive pulmonary disease Sibling Cerebrovascular accident Father CAD (coronary artery disease) of artery bypass graft Social History Social History Smoking packs per day: 4 Smoking cigarettes per day: 80.0 Smoking status: Former smoker Tobacco type: cigarettes Second hand tobacco smoke exposure: No Alcohol intake: never Substance use: never Spiritual care concerns: No Comments At time of signature, agree with nursing past medical, surgical, social and family history. There is no relevant family history pertinent to the presenting complaint Exam Narrative: GENERAL: Well-appearing, well-nourished, and in no acute distress. HEAD: Normocephalic, atraumatic. EYES: PERRLA, sclera clear, and EOMI. No nystagmus. Small corneal abrasion noted just above the pupil to the left eye upon Wood's lamp exam, see note. Small particle noted under the upper eyelid, otherwise upper and lower eyelid unremarkable, no periorbital edema noted ENT: Nares clear, turbinates pink, no rhinorrhea or epistaxis. Mucous membranes moist. TM pearly rader with sharp light reflex bilaterally; no tragal tenderness. NECK: Supple. CHEST: No respiratory distress. Speaks in full sentences. HEART: Regular rate and rhythm. SKIN: Warm, dry, no visible rash. NEURO: Alert and oriented x3. PSYCH: Normal mood and affect Course Course Emergency Course: Patient is aware of diagnosis, understands and agrees to treatment plan. Anticipatory guidance given. Patient agrees to follow-up as directed and is aware of reasons to seek care at the emergency department. Portions of this record may have been created with voice recognition software Level of Care: Express Care Visit Vital Signs Vital signs: Vital Signs Temperature 99.3 F 03/08/23 19:39 Pulse Rate 68 03/08/23 19:39 Respiratory Rate 18 03/08/23 19:39 Blood Pressure 163/63 H 03/08/23 19:39 Pulse Oximetry 100 03/08/23 19:39 Oxygen Delivery Room Air 03/08/23 19:39 Temperature 99.3 F 03/08/23 19:40 Pulse Rate 68 03/08/23 19:40 Respiratory Rate 18 03/08/23 19:40 Blood Pressure 163/63 H 03/08/23 19:40 Pulse Oximetry 100 03/08/23 19:40 Oxygen Delivery Room Air 03/08/23 19:40 Reviewed. Procedures Other Procedure Procedure 1: Other Procedure: Tetracaine 1 gtt instilled in left eye, fluorescein stain applied. Corneal abrasion noted upon warner lamp exam above the pupil. Small particle noted in the upper eyelid, eyelid was rinsed and particle was not noted on re-examine eye washed with NS 100 m
== END 2023-03-08 20:01 | disposition home or self-care (01) ==
PROVIDERS: Emergency Provider Nurse Practitioner; PCP Internal Medicine
DX: T15.02XA Foreign body in cornea, left eye, initial encounter (principal); E03.9 Hypothyroidism, unspecified; Z87.891 Personal history of nicotine dependence
CPT/HCPCS: 99213; A9270; G0463

== ENCOUNTER 2024-04-14 13:31 | Emergency (ER) | payer MEDICARE, SELFPAY ==
--- NOTE | ~2024-04-14 | XR_ITS ---
EXAMINATION: XR ribs RT 2V DATE: 04/14/2024 14:02 INDICATION: Right posterior rib pain. Fall. TECHNIQUE: 2 views of the right ribs on 3 radiographs were obtained. COMPARISON: Chest view 09/13/2021 FINDINGS: There is no right-sided pneumonia, pleural effusion, or pneumothorax. There is a closure de vice at left atrial appendage. There are fracture deformities of anterior right seventh and eighth ri bs. IMPRESSION: 1. Fracture deformities of anterior right seventh and eighth ribs, likely old. Reviewed, dictated and finalized at location [facility]. [facility]
[2024-04-14 13:44] VITALS: BP 147/59; PULSE 60; RESP 16; TEMP 36.7; O2SAT 98
--- NOTE | 2024-04-14 13:45 | ED.BACK ---
HPI - Back Pain/Injury General Chief Complaint: Back Pain/Injury Stated Complaint: back injury Time Seen by Provider: 04/14/24 13:45 Source: patient Mode of arrival: ambulatory Limitations: no limitations History of Present Illness HPI Narrative: 73-year-old female presents with complaint of pain to posterior and lateral aspect of right ribs. Patient reports 2 days ago she was going down stairs and hit right side of back Pain worse with movement, feels like muscle spasm. All systems reviewed and negative except as noted above.. Related Data Home Medications Medication Instructions Recorded Confirmed rosuvastatin 10 mg tablet mg 04/14/24 Allergies Allergy/AdvReac Type Severity Reaction Status Date / Time amoxicillin Allergy Dyspnea / Verified 04/14/24 13:37 SOB Review of Systems Review of Systems: CONSTITUTIONAL: Denies fever, chills, or sweats. EYES: Denies visual changes, redness, or discharge. ENT: Denies rhinorrhea, congestion, sore throat, or otalgia. CARDIOVASCULAR: Denies chest pain, palpitations, or edema. RESPIRATORY: Denies cough or dyspnea. GASTROINTESTINAL: Denies abdominal pain, nausea, vomiting, or diarrhea. GENITOURINARY: Denies dysuria or hematuria. SKIN: Denies rash or itching. MUSCULOSKELETAL: Reports right-sided posterior and lateral rib pain. Denies joint pain, or myalgia. NEUROLOGIC: Denies headache, numbness, or weakness. PSYCHIATRIC: Denies anxiety or depression. All other systems reviewed are negative, except as documented in HPI. PMFSH Past Medical History Medical History Hypothyroidism Family History Family History Mother Brain cancer Sibling Chronic obstructive pulmonary disease Sibling Cerebrovascular accident Father CAD (coronary artery disease) of artery bypass graft Social History Social History Smoking packs per day: 4 Smoking cigarettes per day: 80.0 Smoking status: Former smoker Tobacco type: cigarettes Second hand tobacco smoke exposure: No Alcohol intake: never Substance use: never Spiritual care concerns: No Comments At time of signature, agree with nursing past medical, surgical, social and family history. There is no relevant family history pertinent to the presenting complaint. Exam Narrative: GENERAL: This is a well-nourished, well-developed patient, in no apparent distress. HEAD: normocephalic, atraumatic. EYES: PERRL. Sclera clear/white. Vision is grossly intact. EARS: External ears normal NOSE: External nose normal NECK: Neck supple, non-tender without lymphadenopathy, masses or thyromegaly. CARDIOVASCULAR: Regular rate and rhythm without murmurs, gallops, or rubs. RESPIRATORY: Clear to auscultation. Breath sounds equal bilaterally. No wheezes, rales, or rhonchi. SKIN: warm, Dry, intact with no suspicious lesions or rash, good texture and turgor. NEURO: awake, alert, and oriented to person, place and time. There were no obvious focal neurologic abnormalities. EXTREMITIES: No joint tenderness, effusion, or edema noted. musculoskeletal: tenderness to lateral aspect of right ribs no bruising or swelling noted. No deformity. Course Course Level of Care: Express Care Visit Vital Signs Vital signs: Vital Signs Temperature 36.7 C 04/14/24 13:44 Pulse Rate 60 04/14/24 13:44 Respiratory Rate 16 04/14/24 13:44 Blood Pressure 147/59 H 04/14/24 13:44 Pulse Oximetry 98 04/14/24 13:44 Oxygen Delivery Room Air 04/14/24 13:44 Temperature 36.7 C 04/14/24 13:44 Pulse Rate 60 04/14/24 13:44 Respiratory Rate 16 04/14/24 13:44 Blood Pressure 147/59 H 04/14/24 13:44 Pulse Oximetry 98 04/14/24 13:44 Oxygen Delivery Room Air 04/14/24 13:44 Reviewed MDM - Back Pain/Injury MDM Narrative Medical decision making narrative: x-ray negative for acute rib fracture. Will prescribe methocarbamol for muscle strain. Recommend patient continue ibuprofen or Tylenol as needed for pain. Patient is aware of diagnosis, understands and agrees to treatment plan. Anticipatory guidance given. Patient agrees to follow-up as directed and is aware of reasons to seek care at the emergency department. Portions of this record may have been created with voice recognition software Differential Diagnosis Differential diagnosis: Likely sciatica, strain of lumbar region, thoracic back pain and other ( Rib fracture, thoracic back strain) Imaging Data My impression: agree with radiologist Radiologist's impression: EXAMINATION: XR ribs RT 2V DATE: 04/14/2024 14:02 INDICATION: Right posterior rib pain. Fall. TECHNIQUE: 2 views of the right ribs on 3 radiographs were obtained. COMPARISON: Chest view 09/13/2021 FINDINGS: There is no right-sided pneumonia, pleural effusion, or pneumothorax. There is a closure device at left atrial appendage. There are fracture deformities of anterior right seventh and eighth ribs. IMPRESSION: 1. Fracture deformities of anterior right seventh and eighth ribs, likely old. Discharge Plan Discharge Clinical Impression: Strain of muscle and tendon of back wall of thorax, initial encounter Patient Disposition: Home, Self-Care Condition: Stable Instructions: Muscle Strain (DC) Additional Instructions: the x-ray of your right ribs does not show any new fractures. Take ibuprofen or Tylenol every 6-8 hours as needed for pain. Take methocarbamol as prescribed. This medication may make you drowsy, do not take it while driving. Alternate between ice and heat. Do stretching exercises as tolerated. Follow-up with your primary care physician if symptoms are not improving. Prescriptions: New methocarbamol 500 mg tablet 500 mg PO Q6H PRN (Reason: muscle pain/spasm) Qty: 30 0RF No Action rosuvastatin 10 mg tablet aspirin [Children's Aspirin] 81 mg Tablet,Chewable 81 mg PO DAILY@0800 Qty: 30 5RF levothyroxine [Synthroid] 100 mcg Tablet 100 mcg PO Q48H Qty: 30 5RF Follow-up/Referrals: Jules,Saadia Pruitt MD [Primary Care Provider] - Time of Disposition: 14:33
== END 2024-04-14 14:40 | disposition home or self-care (01) ==
PROVIDERS: Emergency Provider Nurse Practitioner Family; PCP Internal Medicine
DX: S29.012A Strain of muscle and tendon of back wall of thorax, initial encounter (principal); W10.9XXA Fall (on) (from) unspecified stairs and steps, initial encounter; E03.9 Hypothyroidism, unspecified
CPT/HCPCS: 71100; 99213; G0463